=== PATIENT | male | born 1955 ===

== ENCOUNTER 2022-08-10 14:34 | Emergency (ER) | payer MEDICARE, MEDICAID, SELFPAY ==
[2022-08-10 14:48] VITALS: BP 115/64; BP 126/63; PULSE 63; PULSE 64; RESP 20; TEMP 36.6; O2SAT 97; BMI 23.7
--- NOTE | 2022-08-10 15:43 | ED.PSYCH ---
HPI - Psych General Chief Complaint: Psychiatric Symptoms Stated Complaint: AMS/PSYCH EVAL/MED REVIEW FROM SNF PER EMS Time Seen by Provider: 08/10/22 15:10 Source: EMS Mode of arrival: EMS Limitations: other History of Present Illness HPI Narrative: Patient comes to the emergency room by ambulance. Patient has history of dementia, unable to give full history. Patient has no complaints. According to the staff at the facility, patient has been walking into other patient's rooms, being impulsive. Patient is not on a Section 12. Related Data Allergies Allergy/AdvReac Type Severity Reaction Status Date / Time Unable to Assess Allergy Unverified 08/10/22 15:38 Review of Systems Review of Systems: Yes Unobtainable due to mental condition PMFSH Past Medical History Medical History (Updated 08/10/22 @ 15:54 by Eri Sal MD) Asthma-COPD overlap syndrome Dementia Hypertension Pneumothorax Rheumatoid arthritis Urethral stricture Wernicke-Korsakoff syndrome Physical Exam Vital Signs: Vital Signs: Last Vital Signs Temp 97.8 F 08/10/22 14:48 Pulse 63 08/10/22 14:48 Resp 20 08/10/22 14:48 BP 126/63 08/10/22 14:48 Pulse Ox 97 08/10/22 14:48 O2 Del Method Room Air 08/10/22 14:48 BMI result Body Mass Index 23.7 Const: Other: Appearance: Alert. Oriented X1 No acute distress. Eyes: Pupils equal, round and reactive to light. ENT: Pharynx normal. Neck: Normal inspection. Neck supple. No lymph nodes noted. No crepitus CVS: Normal heart rate and rhythm. Pulses normal. Normal S1 and S2 Respiratory: No respiratory distress. Breath sounds normal. No Wheezing. No rales Abdomen: Soft and nontender. No rigidity. No distention. Skin: Skin warm and dry. Normal skin color. Normal skin turgor. Extremities: No lower extremity edema. No Lacerations. No Rash Neuro: Oriented x1 No motor deficit. No sensory deficit. Moving all extremities. No slurred speech. CN 2 through 12 grossly intact Psych: calm, cooperative, normal affect Course Course Course Narrative: -patient was sent to the emergency room for medication evaluation and psychiatric consult. -patient is calm, cooperative -all labs pending -physician observation started at 15:50 Discharge Plan Discharge Clinical Impression: Behavioral change Patient Disposition: Still a Patient
[2022-08-10 16:23] LABS: Appearance Urine Clear; Color Urine Yellow; Glucose Urine UA Negative (Negative); Leukocyte Esterase Urine Negative (Negative); Nitrite Urine Negative (Negative); PH 5.5 (5.0-9.0); Specific Gravity - Urine >= 1.030 (1.005-1.025); Urine Blood Negative (Negative); Urine Ketones Negative (Negative); Urine Protein Negative (Neg-Trace)
[2022-08-10 16:32] LABS: Amphetamine Screen Urine Not Detected (Not Detect); Barbiturates, Urine Not Detected (Not Detect); Benzodiazepines Screen Urine Not Detected (Not Detect); Cannabinoid Screen Urine Not Detected (Not Detect); Cocaine Screen Urine Not Detected (Not Detect); Fentanyl, urine Not Detected (Not Detect); Opiate Screen Urine Not Detected (Not Detect); Phencyclidine Screen Urine Not Detected (Not Detect)
[2022-08-10 16:52] LABS: COVID-19 Test Negative (Negative); IDNOW Serial# BCCEAD1C
[2022-08-10 16:58] LABS: MANUAL DIFF FLAG NO
[2022-08-10 17:02] LABS: Basophils Percent Auto 0.7 % (0-2); Eosinophils Absolute Auto 0.3 X10*3/uL (0.0-0.4); Eosinophils Percent Auto 4.4 % (0-4); Hematocrit 43.7 % (42.0-52.0); Hemoglobin 14.2 g/dl (14.0-18.0); Imm Gran Abs Auto 0.01 X10*3/uL (0.00-0.03); Imm Gran Pct Auto 0.2 % (0.0-0.4); Lymphocytes Absolute Auto 1.5 X10*3/uL (1.2-4.9); Lymphocytes Percent Auto 25.2 % (20-40); Mean Corpuscular HGB Conc 32.5 g/dl (31.0-36.0); Mean Corpuscular Hemoglobin 30.3 pg (27.0-33.0); Mean Corpuscular Volume 93.4 fL (80.0-98.0); Mean Platelet Volume 8.6 fL (9.4-12.4); Monocytes Absolute Auto 0.6 X10*3/uL (0.1-1.2); Monocytes Percent Auto 9.9 % (2-11); Neutrophils Absolute Auto 3.6 x10*3/uL (2.0-8.3); Neutrophils Percent Auto 59.6 % (45-73); Platelet Count 260 X10*3/uL (160-400); Red Blood Count 4.68 X10*6/uL (4.60-5.80); Red Cell Distribution Width 12.2 % (11.0-16.0); White Blood Count 6.1 X10*3/uL (4.8-10.8)
[2022-08-10 17:14] LABS: Anion Gap 10 (12-20); Blood Urea Nitrogen 22 mg/dL (9-16); Calcium 9.5 mg/dL (8.4-10.2); Carbon Dioxide 29 mmol/L (22-29); Chloride 108 mmol/L (96-108); Creatinine Clr Calc Pharmacy 99.8; Estimated Glomerular Filt Rate > 60; Glucose Random 99 mg/dL (60-115); Magnesium 1.9 mg/dL (1.6-2.6); Potassium 4.4 mmol/L (3.3-5.1); Sodium 143 mmol/L (135-145)
--- NOTE | 2022-08-10 18:02 | PC.NURSE ---
pt much more awake and alert, conversational. appears to be confabulating at times, tangential. ambulating on own w slow, steady gait, given dinner tray. offered television in [facility].
[2022-08-10 20:45] VITALS: BP 117/65; PULSE 72; RESP 18; TEMP 36.6; O2SAT 96
--- NOTE | 2022-08-11 06:09 | PC.NURSE ---
Patient slept intermittently through the night, no distress observed/reported, patient is suffering from dementia requires lot of redirection due to increased confusion,Thought process tangential, behavior calm and quiet no behavior concerns, med rec completed/pending provider's approval, care consult ordered, pending evaluation, VSS, will continue to monitor.
[2022-08-11 06:22] VITALS: BP 140/79; PULSE 55; RESP 19; TEMP 36.6; O2SAT 98
--- NOTE | 2022-08-11 06:58 | PC.NURSE ---
Resumed care of patient this morning, He is currently resting in bed, all safety measures in place. Paperwork getting reviewed by care team at this time
--- NOTE | 2022-08-11 07:56 | PHA.MEDREC ---
Pharmacy Consult ? Medication Reconciliation Pharmacy has completed the medication reconciliation. Reviewed med rec done by nursing
[2022-08-11 08:10] VITALS: BP 115/71; PULSE 69; RESP 16; TEMP 36.5; O2SAT 97
[2022-08-11] MEDS: Docusate Sodium 100 MG CAPSULE 200 MG PO (08:22)
[2022-08-11] MEDS: QUEtiapine Fumarate 50 MG TABLET PO (08:22)
[2022-08-11] MEDS: Folic Acid 1 MG TABLET PO (08:23)
[2022-08-11] MEDS: Gabapentin 100 MG CAPSULE PO ×2 (08:23→14:41)
[2022-08-11] MEDS: levETIRAcetam 500 MG TABLET PO (08:23)
[2022-08-11] MEDS: Multivitamin TABLET 1 TAB PO (08:23)
[2022-08-11] MEDS: Thiamine HCL 100 MG TABLET PO (08:23)
--- NOTE | 2022-08-11 09:18 | PC.NURSE ---
per care team, pt does not need Ethanol order, order d/c in system.
--- NOTE | 2022-08-11 12:03 | MHC.CARE ---
CARE Team attempts to make contact with pt?s Mrs. Amanda Santos ([phone]) to gather collateral information.? CARE Team left messages requesting a return phone call at [phone] and [phone] today.
--- NOTE | 2022-08-11 13:23 | MHC.CARE ---
Pt will be returning back home to the following facility.? Pricila is the community marketing coordinator of the unit pt lives on.? There is no accepting Doctor.? The facility is aware. [facility] [address], [place] [address] Pt can arrive at any time
== END 2022-08-11 15:40 | disposition home or self-care (01) ==
PROVIDERS: Emergency Provider Emergency Medicine; PCP Emergency Medicine
DX: F03.918 Unspecified dementia, unspecified severity, with other behavioral disturbance (principal); Z20.822 Contact with and (suspected) exposure to COVID-19; Z20.828 Contact with and (suspected) exposure to other viral communicable diseases; Z79.899 Other long term (current) drug therapy
CPT/HCPCS: 80048; 80307; 81003; 83735; 85025; 87635; 99285; S9485

== ENCOUNTER 2022-08-29 09:28 | Emergency (ER) | payer MEDICARE, MEDICAID, SELFPAY ==
[2022-08-29 09:40] VITALS: BP 109/62; PULSE 103; PULSE 111; RESP 23; TEMP 37.1; O2SAT 92; O2SAT 93; BMI 20.9
--- NOTE | 2022-08-29 09:42 | ED.SOB ---
HPI - SOB/Dyspnea General Chief Complaint: Dyspnea Stated Complaint: SOB from SNF Time Seen by Provider: 08/29/22 09:35 Source: EMS Mode of arrival: EMS Limitations: other (Dementia, delusional disorder) History of Present Illness HPI Narrative: 66-year-old male resident of [facility] who was sent into the emergency department for evaluation of shortness of breath x2 days and low O2 saturation today of 83%. Patient has dementia and is an unreliable informant. I did review the note sent in from the nursing facility. Nursing note states the following: ?66-year-old male history of COPD, asthma, dementia, psych, today with AMS, low O2, increased heart rate, striking out at others residence, vital signs 98.9, 128, 26, 110/75. 80% on room air. Blood sugar 198. Not a diabetic ?. Patient was seen in the emergency department on 08/10/2022 for behavioral issues-walking and other residents rooms. Had a laboratory evaluation at that time which was unremarkable. O2 sats at that time were 96-98% on room air. Related Data Home Medications Medication Instructions Recorded Confirmed docusate sodium 100 mg capsule 200 mg PO BID 08/10/22 08/10/22 (Colace) folic acid 1 mg tablet 1 mg PO DAILY 08/10/22 08/10/22 gabapentin 100 mg capsule 100 mg PO TID 08/10/22 08/10/22 levetiracetam 500 mg tablet 500 mg PO BID 08/10/22 08/10/22 (Keppra) melatonin 5 mg tablet 5 mg PO BEDTIME 08/10/22 08/10/22 multivitamin 1 tab PO DAILY 08/10/22 08/10/22 pyridoxine (vitamin B6) 50 mg 50 mg PO DAILY 08/10/22 08/10/22 tablet quetiapine 50 mg tablet 50 mg PO BEDTIME 08/10/22 08/10/22 quetiapine 50 mg tablet 50 mg PO BID 08/10/22 08/10/22 thiamine HCl (vitamin B1) 100 mg 100 mg PO BID 08/10/22 08/10/22 tablet trazodone 50 mg tablet 50 mg PO BEDTIME PRN Insomnia 08/10/22 08/10/22 Allergies Allergy/AdvReac Type Severity Reaction Status Date / Time No Known Allergies Allergy Verified 06/13/23 19:08 Review of Systems Review of Systems: Yes all other systems are reviewed and are negative [facility] Past Medical History [facility] Narrative: Social history: The patient is a resident of [facility] Medical History Asthma-COPD overlap syndrome Dementia Hypertension Pneumothorax Rheumatoid arthritis Urethral stricture Wernicke-Korsakoff syndrome Social History Social History Alcohol intake: never Advance Directives: Yes Advance Directives on File: Yes Advance Directives Date on File: 08/10/22 Physical Exam Vital Signs: Vital Signs: Last Vital Signs Temp 98.8 F 08/29/22 09:40 Pulse 100 08/29/22 11:56 Resp 18 08/29/22 11:56 BP 103/64 08/29/22 11:56 Pulse Ox 93 08/29/22 11:56 O2 Del Method Nasal Cannula 08/29/22 11:56 O2 Flow Rate 4 08/29/22 11:56 Oxygen Flow Rate 3 08/29/22 09:40 BMI result Body Mass Index 20.9 Const: Other: Awake, alert, male patient, he was able to tell me his name, he does not answer questions appropriately, patient is talking to himself HEENT: Head: Yes normal to inspection, Yes normocephalic and Yes atraumatic Ears: external ears normal General nose exam: Normal external nose present Face and sinus: Yes normal facial exam Mouth: Normal oral and palatal mucosa present Throat: Yes posterior oropharynx normal Eyes: General: appearance normal, both eyes and all related structures Neck: Neck: Yes normal visual inspection, Yes no lymphadenopathy, Yes trachea midline and Yes supple Chest: Chest palpation & inspection: normal inspection of the chest and normal palpation of entire chest wall Resp: Other: Breath sounds are symmetric bilaterally, he has diffuse rhonchi with no wheezing or rales Cardio: Rate: regular rate Rhythm: regular rhythm Heart sounds: S1 normal heart sound present, S2 normal heart sound present and no murmurs GI: Inspection: Yes normal to inspection Palpation (GI): Soft to palpation, nontender and no guarding Auscultation: normal bowel sounds : General: Yes no CVA tenderness Back/Spine/Pelvis: Back: no CVA tenderness Neuro: Other: Oriented to person only, Cranial nerves 2-12 are intact, strength symmetric Extrem: General: Yes normal to inspection Medications Administered Discontinued Medications Generic Name Dose Route Start Last Admin Trade Name Adarsh PRN Reason Stop Dose Admin Acetaminophen 650 mg 08/29/22 10:53 08/29/22 11:03 Acetaminophen Supp 650 Mg Supp.Rect ND 08/29/22 10:54 650 mg ONCE ONE Administration Albuterol Sulfate 5 mg 08/29/22 09:42 08/29/22 11:08 Albuterol Sulfate (0.083%) 2.5 Mg/3 Ml Vial.Neb INHALE 08/29/22 09:43 5 mg ONCE ONE Administration Ceftriaxone Sodium 1 gm/ 50 mls @ 100 mls/hr 08/29/22 10:57 08/29/22 12:14 Sodium Chloride IV 08/29/22 11:26 Infused ONCE ONE Infusion Azithromycin 500 mg/ Sodium 250 mls @ 125 mls/hr 08/29/22 10:57 08/29/22 12:51 Chloride IV 08/29/22 12:56 0 mls/hr ONCE ONE Infusion Methylprednisolone Sodium Succinate 125 mg 08/29/22 09:42 08/29/22 10:52 Methylprednisolone Sod Succ 125 Mg/2 Ml Vial IVPUSH 08/29/22 09:43 125 mg ONCE ONE Administration Medical Decision Making Medical Decision Making MDM Narrative: 66-year-old male with history of dementia, asthma/COPD, delusional disorder, prostate cancer who was sent to the emergency department from his nursing facility for shortness of breath x2 days and hypoxia of 83% on room air which is new for this patient. Patient was not reported to be ill in any other way. He is an unreliable informant and does not answer questions appropriately. Vital signs revealed an elevated heart rate of 103, elevated respiratory 23, afebrile, O2 saturation was 92% on 2 L via nasal cannula. I ordered the following tests: CBC, CMP, PT/INR, PTT, lipase, lactic acid, blood cultures x2, BNP, troponin, chest x-ray one view, 12 EKG. Patient will be treated for possible COPD exacerbation with albuterol 5 mg per nebulizer and Solu-Medrol 125 mg IV 1418: Patient's laboratory evaluation did reveal normal white blood cell count. Patient did have an elevated troponin suggests that he may have myocardial injury. Lactic acid was normal at 1.9 Chest x-ray was concerning for pneumonia. I ordered ceftriaxone 1 g IV and azithromycin 500 mg IV. The patient's came to the emergency depart and I did discuss the patient's hypoxia and pneumonia. The patient's states that she had a long discussion with her before he became dementia and he would not want to be intubated or resuscitated. The also stated that he did not want to have the prolonged life if he was demented. His states that they had both watched her mother suffer with dementia. After this discussion, the patient's who is the patient's healthcare proxy wants the patient to be comfort measures only. Therefore we filled out a most form stating the patient is comfort measures only. The patient will be kept on oxygen since this will make him comfortable secondary to his pneumonia is hypoxia but no other interventions will be except for morphine and other comfort measures. Therefore, we stop the patient's antibiotics and IV fluids. I did talk to the physician clinic office assistant covering [facility], Mr. Corral and he did accept the patient back to the facility for comfort measures only. Differential Diagnosis Differential Diagnoses: The differential diagnosis associated with the presentation includes Differential diagnosis includes but is not limited to pneumonia, congestive heart failure, COPD, pulmonary embolism, myocardial ischemia, myocardial infarction, viral syndrome Admission/Observation Consideration of admission/observation: Escalation of care including admission/observation considered Lab Data MDM Lab Attestation statement: I reviewed the patient's lab results. My interpretation patient's laboratory evaluation is as follows: White blood count was normal 6500. BUN was elevated 24 with normal creatinine. Glucose elevated 146. Total bilirubin was elevated 1.3. High sensitive troponin I was elevated 153.4 . Lactic acid was normal 1.9. 08/29/22 11:53 08/29/22 11:53 Labs: Lab Results 08/29/22 08/29/22 08/29/22 Range/Units 10:29 10:29 10:30 WBC (4.8-10.8) X10*3/uL RBC (4.60-5.80) X10*6/uL Hgb (14.0-18.0) g/dl Hct (42.0-52.0) % MCV (80.0-98.0) fL MCH (27.0-33.0) pg MCHC (31.0-36.0) g/dl RDW (11.0-16.0) % Plt Count (160-400) X10*3/uL MPV (9.4-12.4) fL Immature Gran % (Auto) (0.0-0.4) % Neut % (Auto) (45-73) % Lymph % (Auto) (20-40) % [place] % (Auto) (2-11) % Eos % (Auto) (0-4) % Baso % (Auto) (0-2) % Lymph # (Auto) (1.2-4.9) X10*3/uL [place] # (Auto) (0.1-1.2) X10*3/uL Eos # (Auto) (0.0-0.4) X10*3/uL Baso # (Auto) (0.0-0.2) X10*3/uL Abs Immat Gran (auto) (0.00-0.03) X10*3/uL Absolute Neuts (auto) (2.0-8.3) x10*3/uL Absolute Nucleated RBC (0.0-0.012) X10*3/uL Nucleated RBC % (auto) (0.0-0.2) /100WBC PT (10.0-13.1) SEC INR (0.9-1.1) APTT (26.0-36.4) SEC D-Dimer High Sensitivty NG/ML Sodium (135-145) mmol/L Potassium (3.3-5.1) mmol/L Chloride (96-108) mmol/L Carbon Dioxide (22-29) mmol/L Anion Gap (12-20) BUN (9-16) mg/dL Creatinine (0.5-1.4) mg/dL Estim Creat Clear Calc Estimated GFR Random Glucose (60-115) mg/dL Lactic Acid 1.9 (0.5-2.0) mmol/L Calcium (8.4-10.2) mg/dL Total Bilirubin (0.0-1.0) mg/dL AST (5-37) U/L ALT (0-40) U/L Alkaline Phosphatase (39-117) U/L Troponin I High Sens 153.4 H* (<3.5-35.0) ng/L B-Natriuretic Peptide (<100) pg/mL Total Protein (6.5-8.0) g/dL Albumin (3.5-5.0) g/dL Lipase (8-78) U/L Urine Color Urine Appearance Urine pH (5.0-9.0) Ur Specific [place] (1.005-1.025) Urine Protein (Neg-Trace) mg/dL Urine Glucose (UA) (Negative) mg/dL Urine Ketones (Negative) mg/dL Urine Blood (Negative) Urine Nitrite (Negative) Ur Leukocyte Esterase (Negative) Urine RBC (0-2) /HPF Urine WBC (0-5) /HPF Ur Squamous Epith Cells (0-2) /HPF Urine Bacteria (None Seen) Hyaline Casts (0-2) /LPF Granular Casts COVID-19 (RUSSELL) Negative (Negative) COVID-19 Clin Com See Note 08/29/22 08/29/22 08/29/22 Range/Units 11:11 11:53 11:53 WBC 6.5 (4.8-10.8) X10*3/uL RBC 4.20 L (4.60-5.80) X10*6/uL Hgb 12.8 L (14.0-18.0) g/dl Hct 37.9 L (42.0-52.0) % MCV 90.2 (80.0-98.0) fL MCH 30.5 (27.0-33.0) pg MCHC 33.8 (31.0-36.0) g/dl RDW 12.3 (11.0-16.0) % Plt Count 235 (160-400) X10*3/uL MPV 8.7 L (9.4-12.4) fL Immature Gran % (Auto) 0.2 (0.0-0.4) % Neut % (Auto) 74.8 H (45-73) % Lymph % (Auto) 13.6 L (20-40) % [place] % (Auto) 10.9 (2-11) % Eos % (Auto) 0.0 (0-4) % Baso % (Auto) 0.5 (0-2) % Lymph # (Auto) 0.9 L (1.2-4.9) X10*3/uL [place] # (Auto) 0.7 (0.1-1.2) X10*3/uL Eos # (Auto) 0.0 (0.0-0.4) X10*3/uL Baso # (Auto) 0.0 (0.0-0.2) X10*3/uL Abs Immat Gran (auto) 0.01 (0.00-0.03) X10*3/uL Absolute Neuts (auto) 4.8 (2.0-8.3) x10*3/uL Absolute Nucleated RBC 0.000 (0.0-0.012) X10*3/uL Nucleated RBC % (auto) 0.0 (0.0-0.2) /100WBC PT (10.0-13.1) SEC INR (0.9-1.1) APTT (26.0-36.4) SEC D-Dimer High Sensitivty NG/ML Sodium 140 (135-145) mmol/L Potassium 3.8 (3.3-5.1) mmol/L Chloride 107 (96-108) mmol/L Carbon Dioxide 21 L (22-29) mmol/L Anion Gap 16 (12-20) BUN 24 H (9-16) mg/dL Creatinine 1.01 (0.5-1.4) mg/dL Estim Creat Clear Calc 77.2 Estimated GFR > 60 Random Glucose 146 H (60-115) mg/dL Lactic Acid (0.5-2.0) mmol/L Calcium 9.4 (8.4-10.2) mg/dL Total Bilirubin 1.3 H (0.0-1.0) mg/dL AST 20 (5-37) U/L ALT 13 (0-40) U/L Alkaline Phosphatase 73 (39-117) U/L Troponin I High Sens (<3.5-35.0) ng/L B-Natriuretic Peptide (<100) pg/mL Total Protein 6.8 (6.5-8.0) g/dL Albumin 3.5 (3.5-5.0) g/dL Lipase 18 (8-78) U/L Urine Color Dark Yellow Urine Appearance Cloudy Urine pH 5.5 (5.0-9.0) Ur Specific [place] 1.025 (1.005-1.025) Urine Protein 100 (2+) H (Neg-Trace) mg/dL Urine Glucose (UA) Negative (Negative) mg/dL Urine Ketones 15 (Negative) mg/dL Urine Blood Trace H (Negative) Urine Nitrite Negative (Negative) Ur Leukocyte Esterase Negative (Negative) Urine RBC 6-10 H (0-2) /HPF Urine WBC 0-5 (0-5) /HPF Ur Squamous Epith Cells 6-10 (0-2) /HPF Urine Bacteria None Seen (None Seen) Hyaline Casts 11-20 (0-2) /LPF Granular Casts Present COVID-19 (RUSSELL) (Negative) COVID-19 Clin Com 08/29/22 08/29/22 08/29/22 Range/Units 11:53 11:53 11:53 WBC (4.8-10.8) X10*3/uL RBC (4.60-5.80) X10*6/uL Hgb (14.0-18.0) g/dl Hct (42.0-52.0) % MCV (80.0-98.0) fL MCH (27.0-33.0) pg MCHC (31.0-36.0) g/dl RDW (11.0-16.0) % Plt Count (160-400) X10*3/uL MPV (9.4-12.4) fL Immature Gran % (Auto) (0.0-0.4) % Neut % (Auto) (45-73) % Lymph % (Auto) (20-40) % [place] % (Auto) (2-11) % Eos % (Auto) (0-4) % Baso % (Auto) (0-2) % Lymph # (Auto) (1.2-4.9) X10*3/uL [place] # (Auto) (0.1-1.2) X10*3/uL Eos # (Auto) (0.0-0.4) X10*3/uL Baso # (Auto) (0.0-0.2) X10*3/uL Abs Immat Gran (auto) (0.00-0.03) X10*3/uL Absolute Neuts (auto) (2.0-8.3) x10*3/uL Absolute Nucleated RBC (0.0-0.012) X10*3/uL Nucleated RBC % (auto) (0.0-0.2) /100WBC PT 12.3 (10.0-13.1) SEC INR 1.1 (0.9-1.1) APTT 27.7 (26.0-36.4) SEC D-Dimer High Sensitivty 2192 NG/ML Sodium (135-145) mmol/L Potassium (3.3-5.1) mmol/L Chloride (96-108) mmol/L Carbon Dioxide (22-29) mmol/L Anion Gap (12-20) BUN (9-16) mg/dL Creatinine (0.5-1.4) mg/dL Estim Creat Clear Calc Estimated GFR Random Glucose (60-115) mg/dL Lactic Acid (0.5-2.0) mmol/L Calcium (8.4-10.2) mg/dL Total Bilirubin (0.0-1.0) mg/dL AST (5-37) U/L ALT (0-40) U/L Alkaline Phosphatase (39-117) U/L Troponin I High Sens (<3.5-35.0) ng/L B-Natriuretic Peptide 88 (<100) pg/mL Total Protein (6.5-8.0) g/dL Albumin (3.5-5.0) g/dL Lipase (8-78) U/L Urine Color Urine Appearance Urine pH (5.0-9.0) Ur Specific [place] (1.005-1.025) Urine Protein (Neg-Trace) mg/dL Urine Glucose (UA) (Negative) mg/dL Urine Ketones (Negative) mg/dL Urine Blood (Negative) Urine Nitrite (Negative) Ur Leukocyte Esterase (Negative) Urine RBC (0-2) /HPF Urine WBC (0-5) /HPF Ur Squamous Epith Cells (0-2) /HPF Urine Bacteria (None Seen) Hyaline Casts (0-2) /LPF Granular Casts COVID-19 (RUSSELL) (Negative) COVID-19 Clin Com Independent Interpretation I performed an independent interpretation of an: EKG and Plain X-Ray Radiology Impression Discussion of test interpretation with radiology: I have reviewed the radiologist's reading. Radiologist Impression: XR chest 1V IMPRESSION: Mild bibasilar opacities nonspecific but could reflect atelectasis or pneumonia. . Dictated By:Evaristo Hsieh MD External Record Review External record reviewed: Outpatient record (Nursing facility record sent in with the patient) Chronic Conditions Patient?s care impacted by: Other (Asthma, COPD, dementia) Critical Care Time Critical Care Time Critical Care Time: Yes Total Critical Care Time: 30 Attestation: Critical Care: The patient was critically ill with a high probability of imminent or life threatening deterioration. I spent greater than 30 minutes of discontinuous time evaluating the patient,delivering critical care at the bedside, discussing and evaluating pertinent data with consultants. Critical care time does not include time spent performing separately billable procedures or teaching. Total time spent performing critical care was 30 minutes. Discharge Plan Discharge Clinical Impression: Pneumonia, Hypoxic Patient Disposition: [facility] Additional Instructions: The chest x-ray is consistent with bilateral pneumonia which is causing his hypoxia and altered mental status. The patient has been may comfort measures only to include oxygen and medications like morphine only. The MOLST form has been filled out by me and the patient's I did discuss transfer back to [facility] with the covering physician clinic office assistant Mr. Corral. Prescriptions: No Action docusate sodium [Colace] 100 mg Capsule 200 mg PO BID levetiracetam [Keppra] 500 mg Tablet 500 mg PO BID melatonin 5 mg Tablet 5 mg PO BEDTIME quetiapine 50 mg Tablet 50 mg PO BEDTIME quetiapine 50 mg Tablet 50 mg PO BID trazodone 50 mg Tablet 50 mg PO BEDTIME PRN (Reason: Insomnia) thiamine HCl (vitamin B1) 100 mg Tablet 100 mg PO BID folic acid 1 mg Tablet 1 mg PO DAILY multivitamin [Multivites] Tablet 1 tab PO DAILY pyridoxine (vitamin B6) 50 mg Tablet 50 mg PO DAILY gabapentin 100 mg Capsule 100 mg PO TID
[2022-08-29 11:12] VITALS: PULSE 99; RESP 16; O2SAT 91
--- NOTE | 2022-08-29 11:47 | PC.NURSE ---
pt stating at 87% via NC, destated to low-mid 70s, pt then put on oxymask at 7L. RT at beside with breathing treatment. pt stating at 92% via NC. rectal temp 102.2, rectal Tylenol given per order. will continue observe.
--- NOTE | 2022-08-29 11:47 | PC.NURSE ---
Pt's WAYNE JUAREZ called for update on her . Amanda STATED MY IS A DNR, HE SHOULD NOT GET ANY TUBES, OXYGEN, NO IVs. HIS WISH IS TO BE LEFT ALONE AND BE COMFORTABLE . Pt's was made aware by this RN that we do not have that documented on his chart. Amanda states she is coming here to sign any paperwork that needs to be documented on her husbands file. Dr. Watkins aware. pt resting quietly, no apparent distress.
[2022-08-29 11:56] VITALS: BP 103/64; PULSE 100; RESP 18; O2SAT 93
--- NOTE | 2022-08-29 12:24 | PC.NURSE ---
Dr. King bedside speaking with pts (Amanda).
--- NOTE | 2022-08-29 12:52 | PC.NURSE ---
at bedside, spoke with Dr. King, per Dr. King to stop antibiotics, D/C IV, oxygen to remain at 2L via NC.
--- NOTE | 2022-08-29 14:11 | PC.NURSE ---
Report was given to ADRIENNE Oakes at [facility]. She requested an ED records and updated MOLST form (signed pink copy)
== END 2022-08-29 16:00 | disposition skilled nursing facility (03) ==
PROVIDERS: Emergency Provider Emergency Medicine Emergency Medical Services
DX: J18.9 Pneumonia, unspecified organism (principal); R09.02 Hypoxemia; R41.82 Altered mental status, unspecified; R06.02 Shortness of breath; F03.90 Unspecified dementia, unspecified severity, without behavioral disturbance, psychotic disturbance, mood disturbance, and anxiety; J44.9 Chronic obstructive pulmonary disease, unspecified; I10 Essential (primary) hypertension
CPT/HCPCS: 36415; 71045; 80053; 81001; 83605; 83690; 83880; 84484; 85025; 85379; 85610; 85730; 87040; 87635; 93005; 94640; 96365; 96375; 99284; 99285; J0456; J0696; J2930